=== PATIENT | female | born 1945 | race Caucasian/White ===

== ENCOUNTER → 2016-08-17 | Outpatient (CLI) | payer BC, MEDICARE, OTHER | LOC: COL.RAD 10:20 | DX: Z13.6 Encounter for screening for cardiovascular disorders (principal); I70.0 Atherosclerosis of aorta ==

== ENCOUNTER → 2017-08-16 | Outpatient (CLI) | payer MEDICARE, OTHER | LOC: COL.RAD 10:23 | DX: I71.4 Abdominal aortic aneurysm, without rupture (principal); Z82.49 Family history of ischemic heart disease and other diseases of the circulatory system ==

== ENCOUNTER → 2017-09-21 | Outpatient (CLI) | payer MEDICARE, OTHER | LOC: MC.RAD 10:45 | DX: Z12.31 Encounter for screening mammogram for malignant neoplasm of breast (principal); Z98.82 Breast implant status ==

== ENCOUNTER → 2017-12-14 | Outpatient (CLI) | payer MEDICARE, OTHER | LOC: COL.RAD 10:08 | DX: M99.73 Connective tissue and disc stenosis of intervertebral foramina of lumbar region (principal); M51.36 Other intervertebral disc degeneration, lumbar region; M48.061 Spinal stenosis, lumbar region without neurogenic claudication ==

== ENCOUNTER → 2018-08-29 | Outpatient (CLI) | payer MEDICARE, OTHER | LOC: COL.RAD 08:54 | DX: Z13.6 Encounter for screening for cardiovascular disorders (principal); Z82.49 Family history of ischemic heart disease and other diseases of the circulatory system ==

== ENCOUNTER → 2018-09-22 | Outpatient (CLI) | payer MEDICARE, OTHER | LOC: MC.RAD 10:53 | DX: Z12.31 Encounter for screening mammogram for malignant neoplasm of breast (principal); Z98.82 Breast implant status ==

== ENCOUNTER → 2019-02-28 | Outpatient (CLI) | payer MEDICARE, OTHER, BC | LOC: MHCPAIN 14:22 | DX: G89.29 Other chronic pain (principal); M47.817 Spondylosis without myelopathy or radiculopathy, lumbosacral region; M53.3 Sacrococcygeal disorders, not elsewhere classified | CPT/HCPCS: G0463 ==

== ENCOUNTER → 2019-10-18 | Outpatient (CLI) | payer MEDICARE, OTHER | LOC: MC.RAD 09:45 | DX: Z12.31 Encounter for screening mammogram for malignant neoplasm of breast (principal); Z98.82 Breast implant status ==

== ENCOUNTER → 2020-03-14 | Outpatient (CLI) | payer MEDICARE, OTHER ==
--- NOTE | 2020-03-05 09:41 | NUR ---
PT WANTS TO RESCHEDULE
[~2020-03-14] VITALS: Ht 167.6 cm; Wt 70.2 kg
[~2020-03-14] MED LIST: MAXZIDE-25MG TA1 TAB PO; NAPROSYN500 MG PO; NORVASC 5MG5 MG/TAB PO; PRINIVIL40 MG PO
[2020-03-14 11:57] VITALS: BP 161/83; PULSE 67
[2020-03-14 13:10] VITALS: BP 150/87; PULSE 84
== END ==
LOC: COL.RAD 03-07 12:00
DX: M54.5 Low back pain (principal)
CPT/HCPCS: J3301

== ENCOUNTER → 2020-09-16 | Outpatient (CLI) | payer MEDICARE, OTHER ==
[~2020-09-16] VITALS: Ht 167.6 cm; Wt 68.8 kg
[~2020-09-16] MED LIST changes: +CALCIUM 600600 MG PO; +MEGARED ADVANC1 EAC1 PO; +OCUVITE1 TA1 PO; +TIMOLOL MALEATE5 M1 OD; +VITAMIN C500 MG PO; +VITAMIND3 5000 PO; +XELPROS2.5 ML OU
[2020-09-16 13:05] VITALS: BP 153/86; PULSE 63
[2020-09-16 13:50] VITALS: BP 137/80; PULSE 67
== END ==
LOC: COL.RAD 11:45
DX: M54.5 Low back pain (principal); M15.9 Polyosteoarthritis, unspecified
CPT/HCPCS: J3301

== ENCOUNTER → 2020-10-24 | Outpatient (CLI) | payer MEDICARE, OTHER | LOC: MC.RAD 08:55 | DX: R92.8 Other abnormal and inconclusive findings on diagnostic imaging of breast (principal); Z98.82 Breast implant status ==

== ENCOUNTER → 2021-02-14 | Outpatient (CLI) | payer MEDICARE, OTHER ==
[~2021-02-14] VITALS: Ht 167.6 cm; Wt 70.9 kg
[2021-02-14 11:58] VITALS: BP 156/79; PULSE 60; TEMP 98.2
[2021-02-14 13:15] VITALS: BP 152/75; PULSE 63
== END ==
LOC: COL.RAD 11:43
DX: M54.50 Low back pain, unspecified (principal)
CPT/HCPCS: J3301